=== PATIENT | male | born 2000 | race Caucasian/White ===

== ENCOUNTER 2023-01-01 09:20 | Emergency (ER) | payer OTHER ==
[~2023-01-01] VITALS: Ht 167.6 cm; Wt 69.9 kg
[2023-01-01 11:50] LABS: BASO % 0.2 % (0.0-1.0); EOS % 0.3 % (0.0-3.0); HEMATOCRIT 49.7 % (42.0-52.0); HEMOGLOBIN 16.7 g/dl (13.5-17.5); LYMPH # 0.3 10^3/uL (1.5-5.0); LYMPH % 2.7 % (24.0-44.0); MEAN CORPUSCULAR HEMOGLOBIN 30.4 pg (27.0-33.0); MEAN CORPUSCULAR HGB CONC 33.6 g/dl (32.0-36.5); MEAN CORPUSCULAR VOLUME 90.4 fl (80.0-96.0); MONO # 0.5 10^3/uL (0.0-0.8); MONO % 3.6 % (2.0-8.0); NEUTROPHILS # 11.7 10^3/uL (1.5-8.5); NEUTROPHILS % 92.9 % (36.0-66.0); WHITE BLOOD COUNT 12.6 10^3/uL (4.0-10.0)
[2023-01-01] MEDS ORDERED: ONDANSETRON 4MG 2ML VIAL IV ONE (12:20)
[2023-01-01] MEDS ORDERED: NS 1,000 ML IV ONE (12:20)
[2023-01-01 13:18] LABS: LIPASE 28 U/L (12-53)
[2023-01-01 13:20] LABS: ALBUMIN 3.6 G/DL (3.2-5.2); ALKALINE PHOSPHATASE 81 U/L (46-116); ALT/SGPT 27 U/L (7.0-40); AST/SGOT 36 U/L (<34); BILIRUBIN,DIRECT 0.2 MG/DL (<0.4); BILIRUBIN,TOTAL 0.7 MG/DL (0.3-1.2); BLOOD UREA NITROGEN 21 MG/DL (9-23); CARBON DIOXIDE LEVEL 25 MMOL/L (20-31); CHLORIDE LEVEL 107 MMOL/L (98-107); CREATININE FOR GFR 0.98 MG/DL (0.70-1.30); GLOMERULAR FILTRATION RATE > 60.0 (>60); GLUCOSE, FASTING 81 MG/DL (60-100); SODIUM LEVEL 141 MMOL/L (136-145); TOTAL PROTEIN 6.4 G/DL (5.7-8.2)
[2023-01-01] MEDS ORDERED: ONDA4TAB6 PO (13:49)
[2023-01-01 13:53] VITALS: BP 114/64
[2023-01-01] MEDS ORDERED: ONDANSETRON 4MG ORAL DISINTEGRATING TAB PO ONE (14:05)
== END 2023-01-01 14:11 | disposition home or self-care (01) ==
LOC: M ED 09:20
DX: R11.2 Nausea with vomiting, unspecified (principal); R19.7 Diarrhea, unspecified
CPT/HCPCS: 80048; 80076; 83690; 85025; 96374; 99284; J2405

== ENCOUNTER 2023-07-29 18:47 | Emergency (ER) | payer OTHER ==
[~2023-07-29] VITALS: Ht 167.6 cm; Wt 71.8 kg
[~2023-07-29 18:47] MED LIST: ONDA4TAB6 PO
[2023-07-29] MEDS ORDERED: CIPRODEX OTIC SUSP 7.5ML AD STA (23:16)
[2023-07-29] MEDS ORDERED: CIPR7.5D2 AD (23:17)
[2023-07-29] MEDS ORDERED: FLON27.5 NARES (23:21)
[2023-07-29 23:35] VITALS: BP 130/79; TEMP 97.2; O2SAT 99
== END 2023-07-29 23:37 | disposition home or self-care (01) ==
LOC: M ED 18:47
DX: H72.821 Total perforations of tympanic membrane, right ear (principal)